=== PATIENT | female | born 1995 | race Two or more races ===

== ENCOUNTER 2024-11-22 17:07 | Emergency (ER) | payer MEDICAID, SELFPAY ==
[2024-11-22 17:08] VITALS: BMI 30.2
[2024-11-22 17:37] VITALS: BP 113/68; PULSE 99; RESP 18; TEMP 37.3; O2SAT 99
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
[2024-11-22] MEDS: HYDROcodone/APAP 5/325 TABLET 1 TAB PO (17:55)
[2024-11-22] MEDS: KETOROLAC INJ 60 MG/2 ML VIAL IM (17:57)
[2024-11-22] MEDS: DIPHTH,PERTUSS(ACELL),TET VAC 0.5 ML SYR- ADULT IMi (17:59)
[2024-11-22] MEDS: SILVER SULFADIAZINE CR 1% 25 GM TUBE TOP (18:00)
== END 2024-11-22 21:32 | disposition home or self-care (01) ==
LOC: SERX 17:51
PROVIDERS: Emergency Provider Emergency Medicine; PCP Family Medicine
DX: T25.222A Burn of second degree of left foot, initial encounter (principal); T21.22XA Burn of second degree of abdominal wall, initial encounter; X11.8XXA Contact with other hot tap-water, initial encounter; Z23 Encounter for immunization
CPT/HCPCS: 90471; 90715; 96372; 99283; J1885; A9270